=== PATIENT | male | born 1965 | race Caucasian/White ===

== ENCOUNTER 2019-10-07 16:44 | Observation (INO) ==
[2019-10-07] MEDS ORDERED: ASPIRIN CHEW 324 MG PO STA (17:36)
[2019-10-07] MEDS ORDERED: NITROGLYCERIN 2% OINTMENT 30GM TUBE EXT STA (17:36)
[2019-10-07 17:50] LABS: Basophils # (auto) 0.02 K/uL (0-0.2); Basophils % (auto) 0.2 %; Eosinophils # (auto) 0.14 K/uL (0-0.5); Eosinophils % (auto) 1.7 %; Hematocrit (blood only) 45.2 % (42-52); Immature Granulocytes # (auto) 0.01 K/uL (0.00-0.02); Immature Granulocytes % (auto) 0.1 %; Lymphocytes # (auto) 1.55 K/uL (1.2-3.4); Lymphocytes % (auto) 18.3 %; Mean Corpuscular Hemoglobin 29.3 pg (25-34); Mean Corpuscular Hgb Conc 35.4 g/dL (32-36); Mean Corpuscular Volume 82.6 fL (80-100); Mean Platelet Volume 10.8 fL (7.4-10.4); Monocytes # (auto) 0.67 K/uL (0.11-0.59); Monocytes % (auto) 7.9 %; Neutrophils # (auto) 6.07 K/uL (1.4-6.5); Neutrophils % (auto) 71.8 %; Platelet Count 234 K/uL (130-400); RDW Coefficient of Variation 12.5 % (11.5-14.5); RDW Standard Deviation 37.7 fL (36.4-46.3); Red Blood Count 5.47 M/uL (4.7-6.1); White Blood Count 8.46 K/uL (4.8-10.8)
--- NOTE | 2019-10-07 17:56 | XRay Report ---
XR chest 1V portable CLINICAL HISTORY: 54 years-old Male presenting with Chest Pain. TECHNIQUE: Portable upright AP view of the chest was obtained. COMPARISON: None. FINDINGS: Cardiomediastinal silhouette normal. Mildly low lung volumes. No focal opacity. No large effusion or pneumothorax. Osseous structures normal. Upper abdomen normal. IMPRESSION: 1. No acute cardiopulmonary disease. Electronically signed by: Jose Antonio Ruiz M.D. 10/07/2019 5:55 PM
[2019-10-07 17:57] LABS: iSTAT Creatinine 1.7 mg/dl (0.6-1.3); iSTAT Ionized Calcium 1.13 mmol/l (1.12-1.32); iSTAT Potassium 4.3 mEq/L (3.3-5.0)
[2019-10-07] MEDS ORDERED: SODIUM CHLORIDE 0.9% 1000ML 1,000 ML IV ONE (18:06)
[2019-10-07 18:13] LABS: Alanine Aminotransferase 21 U/L (12-78); Albumin Globulin Ratio 0.8 (0.9-2); Albumin Level 3.4 gm/dl (3.4-5.0); Alkaline Phosphatase 128 U/L (45-117); Aspartate Aminotransferase 14 U/L (15-37); BUN Creatinine Ratio 8.7 (10-20); Bilirubin,Total 0.4 mg/dl (0.2-1); Blood Urea Nitrogen 17 mg/dl (7-18); Calcium 8.8 mg/dl (8.5-10.1); Carbon Dioxide 22 mmol/L (21-32); Chloride 105 mmol/L (98-107); Creatine Kinase 62 U/L (39-308); Creatine Kinase MB 1.7 ng/ml (0.5-3.6); Est GFR (Non-African American) 38.9; Globulin 4.1 gm/dl (2.5-4.0); Glucose 375 mg/dl (70-99); Lipase 70 U/L (73-393); Potassium 4.2 mmol/L (3.5-5.1); Sodium 136 mmol/L (136-145); Total Protein 7.5 gm/dl (6.4-8.2); Troponin I < 0.015 ng/ml (0-0.045)
[2019-10-07] MEDS ORDERED: OPTIRAY 320 125ml IV PRN (18:13)
--- NOTE | 2019-10-07 18:26 | CT Scan Report ---
CT angio chest PE protocol CLINICAL HISTORY: 54 years-old Male presenting with atypical chest pain, shortness of breath, clinica l concern for pulmonary embolus. TECHNIQUE: Multidetector CT angiography of the chest was performed after administration of intravenou s contrast. 3-D volumetric and/or maximum intensity projection (MIP) images were subsequently reconst ructed for review. IV contrast: 116 mL of Optiray 320. One or more dose lowering techniques were used consistent with the principles of ALARA (as low as reasonably achievable), including automatic expos ure control, mA or kV adjustment to individual patient size, and/or use of iterative reconstruction. COMPARISON: Chest x-ray from earlier today. CT DOSE (mGy.cm): The estimated cumulative dose is 1457.20. FINDINGS: Credit Authorizer topogram: Unremarkable. Pulmonary vasculature: The study is adequate for assessment of the pulmonary vascular tree. No filling defect within the pul monary arteries to suggest embolus. Main pulmonary artery is not enlarged. No flattening of the inter ventricular septum. No intracardiac filling defect. No reflux of contrast into the hepatic veins. Remaining chest: Soft tissues: Normal thyroid and thoracic inlet. Gynecomastia. No axillary, supraclavicular, mediasti nal, or hilar lymphadenopathy. Normal aorta. Normal heart size. Coronary artery calcification. No per icardial or pleural effusion. Upper abdomen normal. Lungs and airways: No pneumothorax. Central airways patent. Pulmonary arteries are not significantly enlarged relative to adjacent bronchi. No interlobular septal thickening. Calcified granuloma noted i n the right upper lobe. No other focal nodule or infiltrate. Musculoskeletal: Degenerative changes of the spine. IMPRESSION: 1. No evidence of pulmonary embolus. No acute intrathoracic pathology. Electronically signed by: Jose Antonio Ruiz M.D. 10/07/2019 6:25 PM
--- NOTE | 2019-10-07 18:30 | CT Scan Report ---
CT abd pelvis IV con only CLINICAL HISTORY: Generalized abdominal pain COMPARISON STUDY: None. TECHNIQUE: The patient was scanned in a dynamic helical fashion during intravenous administration of 116 cc of Optiray 320. A dose lowering technique was utilized adhering to the principles of ALARA. CT DOSE: 1457.20 mGy.cm FINDINGS: Lower chest: There are coronary artery calcifications present. There is no focal pulmonary consolidat ion. There are no pleural effusions. Liver: The contrast-enhanced liver is normal in size, contour, and attenuation. There is no intrahepa tic biliary ductal dilatation. The hepatic veins and portal veins are patent. Gallbladder: Unremarkable. Spleen: Normal in size and attenuation. Pancreas: Unremarkable. Adrenal glands: Unremarkable. Kidneys: There is symmetric renal cortical enhancement. The kidneys are normal in size without hydron ephrosis. Bowel: There are no transition zones indicate bowel obstruction. There is no evidence of acute divert iculitis. The right colon is slightly redundant. The appendix is difficult to visualize with certaint y. There are no findings to indicate acute appendicitis. There is formed stool present within nondila parvez small bowel loops. There is debris filled stomach. There is moderate fecal retention. The rectum measures 6 cm. Peritoneum: There is no intraperitoneal free air or abdominal ascites. Vasculature: The abdominal aorta is normal in course and caliber. Adenopathy: None. Pelvic viscera: The bladder, and pelvic viscera are unremarkable. Skeletal structures: No destructive osseous lesions are seen. IMPRESSION: 1. No evidence of bowel obstruction. No evidence of free air 2. No acute inflammatory changes 3. Moderate fecal retention. Correlate clinically with symptoms of constipation. Electronically signed by: Eduin Savage M.D. 10/07/2019 6:29 PM
[2019-10-07] MEDS ORDERED: NovoLIN-R INSULIN PER UNIT CHARGE IV STA (18:45)
[2019-10-07 18:59] LABS: Beta-Hydroxybutyrate 1.13 mg/dl (0.2-2.81)
--- NOTE | 2019-10-07 20:05 | Emergency Department Note ---
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 The patient states that his pain radiates to his left arm. The patient notes that he had nausea and vomiting last night as well. The patient notes that he has also had epigastric abdominal pain for the past week. The patient states that he had nitroglycerin prior to arrival which helped his pain. Home Medications Home Medications Medication Instructions Recorded Confirmed Type Alvesco 1 puff INHALATION BID 10/07/19 10/07/19 History Humulin R Regular U-100 Insuln 1 sliding scale dose SUBCUT TID 10/07/19 10/07/19 History Lantus U-100 Insulin 26 unit SUBCUT DAILY 10/07/19 10/07/19 History amlodipine 10 mg PO DAILY 10/07/19 10/07/19 History aspirin [Aspir-81] 81 mg PO DAILY 10/07/19 10/07/19 History levalbuterol tartrate [Xopenex HFA] 2 inh INHALATION QID PRN 10/07/19 10/07/19 History metoprolol tartrate 25 mg PO DAILY 10/07/19 10/07/19 History mirtazapine 15 mg PO HS 10/07/19 10/07/19 History nitroglycerin [Nitrostat] 0.4 mg SUBLINGUAL UD PRN 10/07/19 10/07/19 History nortriptyline 50 mg PO BID 10/07/19 10/07/19 History nortriptyline 75 mg PO HS 10/07/19 10/07/19 History pantoprazole 40 mg PO DAILY 10/07/19 10/07/19 History ibuprofen 600 mg PO Q8H PRN #20 tab 10/08/19 Rx lidocaine 1 appln TOP BID PRN #30 gm 10/08/19 Rx lisinopril 2.5 mg PO DAILY #30 tab 10/08/19 Rx Allergies Allergy/AdvReac Type Severity Reaction Status Date / Time No Known Allergies Allergy Unverified 10/07/19 19:16 Past Med/Surg History Social History Preferred Language: Sinhala Communication Ability: Effective Dynamite Shooter Required: No Beliefs That Will Affect Care: None Current Living Situation: Other Feels Safe at Home: Yes Smoking Status: Unknown if ever smoked Hx Alcohol Use: No Hx Substance Use: No Review of Systems See HPI for pertinent positives & negatives. and A total of 10 systems reviewed and were otherwise negative Physical Exam Vital Signs Vital Signs - 24 hr 10/07/19 16:52 10/07/19 17:17 10/07/19 17:30 Temperature 36.8 C Temperature Source Oral Sepsis Recent Fever Within 48 Hours No Sepsis New/Unexplained Change in Mental Status No Sepsis Action Taken by Nursing No Action Required Pulse Rate 124 H Pulse Rate [Left] 118 H Pulse Rate from SpO2 Sensor Respiratory Rate 20 20 Respiratory Effort / Characteristics Non-Labored Spontaneous Non-Labored Spontaneous Respiratory Depth Blood Pressure 154/90 H Blood Pressure [Right Arm] 161/109 H Blood Pressure Mean 111 Blood Pressure Mean [Right Arm] 126 Blood Pressure Position Lying Blood Pressure Position [Right Arm] Lying Pulse Oximetry 96 96 97 Oxygen Delivery Method Room Air Room Air Room Air 10/07/19 18:41 10/07/19 19:00 10/07/19 19:01 Temperature Temperature Source Sepsis Recent Fever Within 48 Hours Sepsis New/Unexplained Change in Mental Status Sepsis Action Taken by Nursing Pulse Rate 110 H 109 H Pulse Rate [Left] 87 Pulse Rate from SpO2 Sensor 110 H 109 H Respiratory Rate 18 16 15 Respiratory Effort / Characteristics Non-Labored Spontaneous Respiratory Depth Normal Blood Pressure 160/93 H Blood Pressure [Right Arm] 154/100 H Blood Pressure Mean 115 Blood Pressure Mean [Right Arm] 118 Blood Pressure Position Blood Pressure Position [Right Arm] Lying Pulse Oximetry 95 96 95 Oxygen Delivery Method Room Air 10/07/19 19:30 10/07/19 19:31 Temperature Temperature Source Sepsis Recent Fever Within 48 Hours Sepsis New/Unexplained Change in Mental Status Sepsis Action Taken by Nursing Pulse Rate 112 H 112 H Pulse Rate [Left] Pulse Rate from SpO2 Sensor 112 H 112 H Respiratory Rate 15 15 Respiratory Effort / Characteristics Respiratory Depth Blood Pressure 156/99 H Blood Pressure [Right Arm] Blood Pressure Mean 118 Blood Pressure Mean [Right Arm] Blood Pressure Position Blood Pressure Position [Right Arm] Pulse Oximetry 95 95 Oxygen Delivery Method GENERAL: Awake, alert, well-appearing, in no acute distress HENT: Normocephalic, atraumatic. Oropharynx unremarkable. EYES: Normal conjunctiva. Sclera non-icteric. NECK: Supple. No nuchal rigidity. FROM. No JVD. RESPIRATORY: Clear to auscultation. CARDIAC: Regular rate, normal rhythm. Extremities warm and well perfused. Pulses equal. ABDOMEN: Soft, non-distended. No tenderness to palpation. No rebound or guarding. No masses. RECTAL: Deferred. MUSCULOSKELETAL: Chest examination reveals no tenderness. The back is symmetrical on inspection without obvious abnormality. There is no CVA tenderness to palpation. No joint edema. 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 No edema. No discoloration. NEURO: Normal sensorium. No sensory or motor deficits noted. SKIN: No rash or jaundice noted. Course 173: Past medical records reviewed. The patient was evaluated in room C08. A complete history and physical exam was performed. 191: I discussed the case with Dr. Platt [facility] Hospitalist. He will evaluate the patient for further management. Consultations Consultation #1: I discussed the case with Dr. Platt [facility] Hospitalist. He will evaluate the patient for further management. Time: 19:19 Administered Medications Discontinued Medications Acetaminophen (Tylenol) 650 mg PO Q4H PRN PRN Reason: mild pain or fever Stop: 11/06/19 20:53 Last Admin: 10/08/19 08:45 Dose: 650 mg Documented by: [id number] Cosigned by: [id number] Amlodipine Besylate (Norvasc) 10 mg PO DAILY XENA Stop: 11/07/19 08:59 Last Admin: 10/08/19 08:39 Dose: 10 mg Documented by: [id number] Cosigned by: [id number] Aspirin (Aspirin) 324 mg PO NOW STA Stop: 10/07/19 17:37 Last Admin: 10/07/19 17:52 Dose: Not Given Documented by: [id number] Aspirin (Ecotrin Ectab) 81 mg PO DAILY XENA Stop: 11/07/19 08:59 Last Admin: 10/08/19 08:39 Dose: 81 mg Documented by: [id number] Cosigned by: [id number] Heparin Sodium (Porcine) (Heparin Sodium (Porcine)) 5,000 units SQ Q8 XENA Stop: 11/06/19 21:59 Last Admin: 10/08/19 16:26 Dose: 5,000 units Documented by: [id number] Cosigned by: [id number] Admin: 10/08/19 05:42 Dose: 5,000 units Documented by: [id number] Cosigned by: [id number] Admin: 10/07/19 23:46 Dose: 5,000 units Documented by: [id number] Cosigned by: [id number] Sodium Chloride (Nss 1000ml) 1,000 mls @ 999 mls/hr IV .Q1H1M ONE Stop: 10/07/19 19:06 Last Infusion: 10/07/19 19:38 Dose: 0 mls/hr Documented by: [id number] Admin: 10/07/19 18:37 Dose: 999 mls/hr Documented by: [id number] Sodium Chloride (Nss 1000ml) 1,000 mls @ 125 mls/hr IV .Q8H XENA Stop: 11/06/19 23:44 Last Admin: 10/08/19 17:03 Dose: Not Given Documented by: [id number] Infusion: 10/08/19 14:47 Dose: 0 mls/hr Documented by: [id number] Admin: 10/08/19 08:29 Dose: 125 mls/hr Documented by: [id number] Cosigned by: [id number] Infusion: 10/08/19 08:29 Dose: 125 mls/hr Documented by: [id number] Cosigned by: [id number] Admin: 10/08/19 00:37 Dose: 125 mls/hr Documented by: [id number] Lactated Ringer's (Lr) 1,000 mls @ 999 mls/hr IV .Q1H1M ONE Stop: 10/08/19 14:28 Last Infusion: 10/08/19 16:12 Dose: 0 mls/hr Documented by: [id number] Cosigned by: [id number] Admin: 10/08/19 13:45 Dose: 999 mls/hr Documented by: [id number] Insulin Aspart (Novolog Flexpen) 0 units SC Q6 XENA Stop: 11/07/19 00:00 Last Admin: 10/08/19 17:03 Dose: 8 units Documented by: [id number] Cosigned by: [id number] Admin: 10/08/19 12:47 Dose: 6 units Documented by: [id number] Cosigned by: [id number] Admin: 10/08/19 05:42 Dose: 5 units Documented by: [id number] Cosigned by: [id number] Admin: 10/08/19 00:44 Dose: 5 units Documented by: [id number] Cosigned by: [id number] Insulin Glargine (Lantus Solostar Pen) 26 units SQ DAILY XENA Stop: 11/07/19 08:59 Last Admin: 10/08/19 08:40 Dose: 13 units Documented by: [id number] Cosigned by: [id number] Insulin Human Regular (Novolin R U-100 Per Unit) 10 units IV NOW STA Stop: 10/07/19 18:46 Last Admin: 10/07/19 18:49 Dose: 10 units Documented by: [id number] Cosigned by: [id number] Ioversol (Optiray 320 125ml) 116 ml IV ONCE PRN PRN Reason: Interaction Checking Stop: 10/11/19 18:12 Last Admin: 10/07/19 18:14 Dose: 116 ml Documented by: [id number] Magnesium Hydroxide (Milk Of Magnesia) 30 ml PO Q6H PRN PRN Reason: Constipation Stop: 11/06/19 20:53 Last Admin: 10/08/19 08:43 Dose: 30 ml Documented by: [id number] Cosigned by: [id number] Metoprolol Tartrate (Lopressor) 25 mg PO DAILY XENA Stop: 11/07/19 08:59 Last Admin: 10/08/19 08:40 Dose: 25 mg Documented by: [id number] Cosigned by: [id number] Mirtazapine (Remeron) 15 mg PO HS XENA Stop: 11/06/19 20:59 Last Admin: 10/08/19 19:27 Dose: 15 mg Documented by: [id number] Admin: 10/07/19 23:46 Dose: 15 mg Documented by: [id number] Miscellaneous (Order Awaiting Action) 1 ea N/A QS XENA Stop: 11/07/19 00:00 Last Admin: 10/08/19 17:09 Dose: Not Given Documented by: [id number] Admin: 10/08/19 09:24 Dose: Not Given Documented by: [id number] Admin: 10/08/19 00:31 Dose: Not Given Documented by: [id number] Morphine Sulfate (Morphine Sulfate) 4 mg IV Q4H PRN PRN Reason: Severe Pain (7,8,9, 10) Stop: 10/21/19 20:53 Last Admin: 10/07/19 22:16 Dose: 4 mg Documented by: [id number] Nitroglycerin (Nitro-Bid 2%) 1 inch EXT NOW STA Stop: 10/07/19 17:37 Last Admin: 10/07/19 17:51 Dose: 1 inch Documented by: [id number] Nitroglycerin (Nitro-Bid 2%) 0.5 inch EXT Q6 XENA Stop: 11/07/19 00:00 Last Admin: 10/08/19 17:10 Dose: Not Given Documented by: [id number] Admin: 10/08/19 12:46 Dose: Not Given Documented by: [id number] Admin: 10/08/19 05:38 Dose: 0.5 inch Documented by: [id number] Admin: 10/08/19 00:37 Dose: 0.5 inch Documented by: [id number] Nortriptyline HCl (Pamelor) 75 mg PO HS XENA Stop: 11/06/19 20:59 Last Admin: 10/08/19 19:26 Dose: 75 mg Documented by: [id number] Admin: 10/07/19 23:48 Dose: 75 mg Documented by: [id number] Nortriptyline HCl (Pamelor) 50 mg PO BID XENA Stop: 11/06/19 20:59 Last Admin: 10/08/19 19:27 Dose: 50 mg Documented by: [id number] Admin: 10/08/19 08:42 Dose: 50 mg Documented by: [id number] Cosigned by: [id number] Admin: 10/07/19 23:47 Dose: 50 mg Documented by: [id number] Pantoprazole Sodium (Protonix) 40 mg PO DAILY XENA Stop: 11/07/19 08:59 Last Admin: 10/08/19 08:40 Dose: 40 mg Documented by: [id number] Cosigned by: [id number] Senna/Docusate Sodium (Senokot S) 2 tab PO HS XENA Stop: 11/06/19 20:59 Last Admin: 10/08/19 19:27 Dose: Not Given Documented by: [id number] Admin: 10/07/19 23:55 Dose: 2 tab Documented by: [id number] Medical Decision Making Differential Diagnosis Differential diagnosis: Etiologies such as shingles, musculoskeletal pain, pericarditis, myocarditis, cardiac ischemia, pericardial tamponade, pneumonia, pneumothorax, pleural effusion, hemothorax, pleurisy, aortic pathology, pulmonary embolism, intra- abdominal process, as well as others were considered. Medical Records Attestation: I reviewed the patient's medical records. Home Medications Current Medication List: was personally reviewed by me Laboratory Data Attestation: I reviewed the patient's lab results. Result diagrams: 10/08/19 09:12 10/08/19 16:03 Lab Results 10/07/19 10/07/19 10/07/19 Range/Units 17:25 17:25 17:45 WBC 8.46 (4.8-10.8) K/uL RBC 5.47 (4.7-6.1) M/uL Hgb 16.0 (14.0-18.0) g/dL POC Hgb 16.0 (14.0-18.0) g/dl Hct 45.2 (42-52) % POC Hct 47 (42-52) % MCV 82.6 (80-100) fL MCH 29.3 (25-34) pg MCHC 35.4 (32-36) g/dL RDW Std Deviation 37.7 (36.4-46.3) fL RDW Coeff of Kimberly 12.5 (11.5-14.5) % Plt Count 234 (130-400) K/uL MPV 10.8 H (7.4-10.4) fL Immature Gran % (Auto) 0.1 % Neut % (Auto) 71.8 % Lymph % (Auto) 18.3 % [place] % (Auto) 7.9 % Eos % (Auto) 1.7 % Baso % (Auto) 0.2 % Immature Gran # (Auto) 0.01 (0.00-0.02) K/uL Neut # (Auto) 6.07 (1.4-6.5) K/uL Lymph # (Auto) 1.55 (1.2-3.4) K/uL [place] # (Auto) 0.67 H (0.11-0.59) K/uL Eos # (Auto) 0.14 (0-0.5) K/uL Baso # (Auto) 0.02 (0-0.2) K/uL POC Sodium 138 (135-144) mEq/L Sodium 136 (136-145) mmol/L POC Potassium 4.3 (3.3-5.0) mEq/L Potassium 4.2 (3.5-5.1) mmol/L POC Chloride 103 (101-112) mEq/L Chloride 105 (98-107) mmol/L Carbon Dioxide 22 (21-32) mmol/L POC Total CO2 22 L (24-31) mEq/l Anion Gap 8.0 (3-11) POC Anion Gap 18.0 (16-25) mmol/L POC BUN 18 (7-18) mg/dl BUN 17 (7-18) mg/dl Creatinine 1.91 H (0.6-1.4) mg/dl POC Creatinine 1.7 H (0.6-1.3) mg/dl Est Cr Clr Drug Dosing Not Reportable Est GFR ( Amer) 45.0 Est GFR (Non-Af Amer) 38.9 BUN/Creatinine Ratio 8.7 L (10-20) Glucose 375 H* (70-99) mg/dl POC Glucose (70-99) POC Glucose (other) 385 H* (70-99) mg/dl Calcium 8.8 (8.5-10.1) mg/dl POC Ioniz Calcium Colleen 1.13 (1.12-1.32) mmol/l Total Bilirubin 0.4 (0.2-1) mg/dl AST 14 L (15-37) U/L ALT 21 (12-78) U/L Alkaline Phosphatase 128 H (45-117) U/L Total Creatine Kinase 62 (39-308) U/L CK-MB (CK-2) 1.7 (0.5-3.6) ng/ml CK/CKMB % Calc 2.7 (0-3.0) Troponin I < 0.015 (0-0.045) ng/ml Total Protein 7.5 (6.4-8.2) gm/dl Albumin 3.4 (3.4-5.0) gm/dl Globulin 4.1 H (2.5-4.0) gm/dl Albumin/Globulin Ratio 0.8 L (0.9-2) Lipase 70 L (73-393) U/L Beta-Hydroxybutyric Acd 1.13 (0.2-2.81) mg/dl 10/07/19 Range/Units 19:47 WBC (4.8-10.8) K/uL RBC (4.7-6.1) M/uL Hgb (14.0-18.0) g/dL POC Hgb (14.0-18.0) g/dl Hct (42-52) % POC Hct (42-52) % MCV (80-100) fL MCH (25-34) pg MCHC (32-36) g/dL RDW Std Deviation (36.4-46.3) fL RDW Coeff of Kimberly (11.5-14.5) % Plt Count (130-400) K/uL MPV (7.4-10.4) fL Immature Gran % (Auto) % Neut % (Auto) % Lymph % (Auto) % [place] % (Auto) % Eos % (Auto) % Baso % (Auto) % Immature Gran # (Auto) (0.00-0.02) K/uL Neut # (Auto) (1.4-6.5) K/uL Lymph # (Auto) (1.2-3.4) K/uL [place] # (Auto) (0.11-0.59) K/uL Eos # (Auto) (0-0.5) K/uL Baso # (Auto) (0-0.2) K/uL POC Sodium (135-144) mEq/L Sodium (136-145) mmol/L POC Potassium (3.3-5.0) mEq/L Potassium (3.5-5.1) mmol/L POC Chloride (101-112) mEq/L Chloride (98-107) mmol/L Carbon Dioxide (21-32) mmol/L POC Total CO2 (24-31) mEq/l Anion Gap (3-11) POC Anion Gap (16-25) mmol/L POC BUN (7-18) mg/dl BUN (7-18) mg/dl Creatinine (0.6-1.4) mg/dl POC Creatinine (0.6-1.3) mg/dl Est Cr Clr Drug Dosing Est GFR ( Amer) Est GFR (Non-Af Amer) BUN/Creatinine Ratio (10-20) Glucose (70-99) mg/dl POC Glucose 274 H (70-99) POC Glucose (other) (70-99) mg/dl Calcium (8.5-10.1) mg/dl POC Ioniz Calcium Colleen (1.12-1.32) mmol/l Total Bilirubin (0.2-1) mg/dl AST (15-37) U/L ALT (12-78) U/L Alkaline Phosphatase (45-117) U/L Total Creatine Kinase (39-308) U/L CK-MB (CK-2) (0.5-3.6) ng/ml CK/CKMB % Calc (0-3.0) Troponin I (0-0.045) ng/ml Total Protein (6.4-8.2) gm/dl Albumin (3.4-5.0) gm/dl Globulin (2.5-4.0) gm/dl Albumin/Globulin Ratio (0.9-2) Lipase (73-393) U/L Beta-Hydroxybutyric Acd (0.2-2.81) mg/dl Imaging Data Radiologist's Impression: Radiology results as stated below per my review and the radiologist's interpretation: XR chest 1V portable CLINICAL HISTORY: 54 years-old Male presenting with Chest Pain. TECHNIQUE: Portable upright AP view of the chest was obtained. COMPARISON: None. FINDINGS: Cardiomediastinal silhouette normal. Mildly low lung volumes. No focal opacity. No large effusion or pneumothorax. Osseous structures normal. Upper abdomen normal. IMPRESSION: 1. No acute cardiopulmonary disease. Electronically signed by: Jose Antonio Ruiz M.D. 10/07/2019 5:[address] angio chest PE protocol CLINICAL HISTORY: 54 years-old Male presenting with atypical chest pain, shortness of breath, clinical concern for pulmonary embolus. TECHNIQUE: Multidetector CT angiography of the chest was performed after admi nistration of intravenous contrast. 3-D volumetric and/or maximum intensity projection (MIP) images were subsequently reconstructed for review. IV contrast: 116 mL of Optiray 320. One or more dose lowering techniques were used consistent with the principles of ALARA (as low as reasonably achievable), including automatic exposure control, mA or kV adjustment to individual patient size, and/or use of iterative reconstruction. COMPARISON: Chest x-ray from earlier today. CT DOSE (mGy.cm): The estimated cumulative dose is 1457.20. FINDINGS: Marketing Assistant topogram: Unremarkable. Pulmonary vasculature: The study is adequate for assessment of the pulmonary vascular tree. No filling defect within the pulmonary arteries to suggest embolus. Main pulmonary artery is not enlarged. No flattening of the interventricular septum. No intracardiac filling defect. No reflux of contrast into the hepatic veins. Remaining chest: Soft tissues: Normal thyroid and thoracic inlet. Gynecomastia. No axillary, supr aclavicular, mediastinal, or hilar lymphadenopathy. Normal aorta. Normal heart size. Coronary artery calcification. No pericardial or pleural effusion. Upper abdomen normal. Lungs and airways: No pneumothorax. Central airways patent. Pulmonary arteries are not significantly enlarged relative to adjacent bronchi. No interlobular septal thickening. Calcified granuloma noted in the right upper lobe. No other focal nodule or infiltrate. Musculoskeletal: Degenerative changes of the spine. IMPRESSION: 1. No evidence of pulmonary embolus. No acute intrathoracic pathology. Electronically signed by: Jose Antonio Ruiz M.D. 10/07/2019 6:[address] abd pelvis IV con only CLINICAL HISTORY: Generalized abdominal pain COMPARISON STUDY: None. TECHNIQUE: The patient was scanned in a dynamic helical fashion during intravenous administration of 116 cc of Optiray 320. A dose lowering technique was utilized adhering to the principles of ALARA. CT DOSE: 1457.20 mGy.cm FINDINGS: Lower chest: There are coronary artery calcifications present. There is no focal pulmonary consolidation. There are no pleural effusions. Liver: The contrast-enhanced liver is normal in size, contour, and attenuation. There is no intrahepatic biliary ductal dilatation. The hepatic veins and portal veins are patent. Gallbladder: Unremarkable. Spleen: Normal in size and attenuation. Pancreas: Unremarkable. Adrenal glands: Unremarkable. Kidneys: There is symmetric renal cortical enhancement. The kidneys are normal in size without hydronephrosis. Bowel: There are no transition zones indicate bowel obstruction. There is no evidence of acute diverticulitis. The right colon is slightly redundant. The appendix is difficult to visualize with certainty. There are no findings to indicate acute appendicitis. There is formed stool present within nondilated small bowel loops. There is debris filled stomach. There is moderate fecal retention. The rectum measures 6 cm. Peritoneum: There is no intraperitoneal free air or abdominal ascites. Vasculature: The abdominal aorta is normal in course and caliber. Adenopathy: None. Pelvic viscera: The bladder, and pelvic viscera are unremarkable. Skeletal structures: No destructive osseous lesions are seen. IMPRESSION: 1. No evidence of bowel obstruction. No evidence of free air 2. No acute inflammatory changes 3. Moderate fecal retention. Correlate clinically with symptoms of constipation. Electronically signed by: Eduin Savage M.D. 10/07/2019 6:29 PM ECG Data Attestation: I personally reviewed and interpreted this ECG as follows: Indication: + chest pain Rate (beats per minute): 125 Rhythm: + sinus tachycardia ECG ST segments: no ST depression and no ST elevation ECG Findings: + Other (old inferior infarct, QTC 424) Blood Pressure Blood Pressure Findings: Elevated blood pressure Blood Pressure Disposition: further management by hospitalist [facility] Narrative This is a prisoner the presents to the emergency department complaining of chest pain. Patient's pain was relieved by nitro. Nitropaste was placed on the patient in the emergency department. His blood sugar was found to be grossly elevated and he was given insulin here in the emergency department. Based on his risk factors I did discuss the case with the hospitalist service who agreed to admit the patient. Patient was in agreement with the treatment plan. Impression & Plan Chest pain, Type II diabetes mellitus, CKD (chronic kidney disease) stage 3, GFR 30-59 ml/min Discharge Plan Visit Data *Final* Discharge Date/Time: 10/07/19 20:24 Chief Complaint: Chest Pain Stated Complaint: CHEST PAIN ED Provider: Justin Guevara Discharge Problem: Chest pain, Type II diabetes mellitus, CKD (chronic kidney disease) stage 3, GFR 30-59 ml/min Patient Disposition: Admitted As Inpatient Discharge Instructions Interventions: ED Discharge Assessment Last Done: 10/07/19 20:24 The scribe's documentation has been prepared under my direction and personally reviewed by me in its entirety. I confirm that the note above accurately refl ects all work, treatment, procedures, and medical decision making performed by me.
[2019-10-07] MEDS ORDERED: DEXTROSE 50% 50 ML SYRINGE IV PRN (20:54)
[2019-10-07] MEDS ORDERED: CARBOHYDRATES FOR HYPOGLYCEMIA PO PRN (20:54)
[2019-10-07] MEDS ORDERED: GLUCOSE 40% GEL 15 GM TUBE PO PRN (20:54)
[2019-10-07] MEDS ORDERED: MoRPHine SULFATE 2 MG/ML CARP IV PRN (20:54)
[2019-10-07] MEDS ORDERED: MoRPHine SULFATE 4 MG/ML 1 ML CARP\\VIAL IV PRN (20:54)
[2019-10-07] MEDS ORDERED: METOPROLOL TARTRATE 1 MG/ML VIAL IV PRN (20:54)
[2019-10-07] MEDS ORDERED: HydrALAZINE HCL 20 MG/ML VIAL IV PRN (20:54)
[2019-10-07] MEDS ORDERED: MAGNESIUM HYDROXIDE SUSP 30 ML UDC PO PRN (20:54)
[2019-10-07] MEDS ORDERED: GLUCAGON FOR INJ 1 MG VIAL SQ PRN (20:54)
[2019-10-07] MEDS ORDERED: LEVALBUTEROL HCL 1.25 MG/3 ML NEB NEB PRN (20:54)
[2019-10-07] MEDS ORDERED: ACETAMINOPHEN 325 MG TAB PO PRN (20:54)
[2019-10-07] MEDS ORDERED: GLUCOSE 10 TABS/TUBE PO PRN (20:54)
[2019-10-07] MEDS ORDERED: ONDANSETRON INJ 2 MG/ML 2 ML VIAL IV PRN (20:54)
[2019-10-07] MEDS ORDERED: INSULIN HUMAN REGULAR SC SCH (21:00)
--- NOTE | 2019-10-07 23:44 | History & Physical Report ---
Date of Service October 07, 2019 Assessment & Plan (1) Chest pain: OBs PCU serial trops Npo after midnight in preparation for possibility of cardiac cath Cardiology consult NTG paste Morphine for pain control Aspirin given in ED Echo (2) CAD (coronary artery disease): (3) Stented coronary artery: (4) HTN (hypertension): Continue amlodipine and metoprolol (5) Depression: Continue mirtazapine and nortriptylline (6) Type II diabetes mellitus: Continue Lantus Sliding scale coverage HGBA1C (7) CKD (chronic kidney disease) stage 3, GFR 30-59 ml/min: I give IVF overnight in that he had dye load from CTA chest. (8) GERD (gastroesophageal reflux disease): Continue pantroprazole. (9) Below-knee amputation of left lower extremity: History of Present Illness 54 y/o male presented to the ED with substernal chest pain radiating to the L arm of 10 hours duration. He had NTG prior to arrival with some relief of the pain. He reports having epigastric pain over the previous week and then last night had N/V. He has a history of CAD with stent placement. No F/C, cough, SOB, diaphoresis, or syncope. Primary Care Provider: DANIEL Hall Allergies Allergy/AdvReac Type Severity Reaction Status Date / Time No Known Allergies Allergy Unverified 10/07/19 19:16 Home Medications Home Medications Medication Instructions Recorded Confirmed Type amlodipine 10 mg PO DAILY 10/07/19 10/07/19 History aspirin [Aspir-81] 81 mg PO DAILY 10/07/19 10/07/19 History ciclesonide [Alvesco] 1 puff INHALATION BID 10/07/19 10/07/19 History insulin glargine [Lantus U-100 26 unit SUBCUT DAILY 10/07/19 10/07/19 History Insulin] insulin regular human [Humulin R 1 sliding scale dose SUBCUT TID 10/07/19 10/07/19 History Regular U-100 Insuln] levalbuterol tartrate [Xopenex HFA] 2 inh INHALATION QID PRN 10/07/19 10/07/19 History metoprolol tartrate 25 mg PO DAILY 10/07/19 10/07/19 History mirtazapine 15 mg PO HS 10/07/19 10/07/19 History nitroglycerin [Nitrostat] 0.4 mg SUBLINGUAL UD PRN 10/07/19 10/07/19 History nortriptyline 50 mg PO BID 10/07/19 10/07/19 History nortriptyline 75 mg PO HS 10/07/19 10/07/19 History pantoprazole 40 mg PO DAILY 10/07/19 10/07/19 History Past Med/Surg History Medical History Below-knee amputation of left lower extremity Bipolar 1 disorder CAD (coronary artery disease) Depression Diabetes GERD (gastroesophageal reflux disease) HTN (hypertension) Kidney failure Surgical History Stented coronary artery Social History Preferred Language: Moroccan Communication Ability: Effective 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 - no dysuria, no hematuria Musculoskeletal- no arthralgias, no myalgias Derm- no rashes, no new skin lesions, no changing skin lesions Hematologic- no unusual bruising, no unusual bleeding Lymphatics- no adenopathy Endocrine- no polyuria or polydipsia; no heat or cold intolerance Neuro- no headaches, no focal neurologic symptoms Psych- no anxiety. Physical Exam Physical Exam: General- adult male, NAD Head- atraumatic Eyes- PERRL, EOMI, anicteric ENT- oropharynx clear Neck- supple, no JVD, no adenopathy, no thyromegaly; carotids +2/2, no bruits appreciated Lungs- CTA b/l no R/R/W Heart- regular rhythm; no murmur, no gallop, no rub appreciated Abdomen- normal bowel sounds, soft, nontender. Extremities- no pretibial edema, no calf tenderness on right. Left BKA Neuro- alert, oriented x 3; PERRL, EOMI; CN's II-XII grossly intact, non-focal. Skin- warm & dry Results & Data Vital Signs (Past 12 Hours) Vital Signs Temp Pulse Pulse Resp BP BP Pulse Ox 10/07/19 20:30 36.8 C 103 H 17 145/84 H 96 10/07/19 19:31 112 H 15 95 10/07/19 19:30 112 H 15 156/99 H 95 10/07/19 19:01 109 H 15 95 10/07/19 19:00 110 H 16 160/93 H 96 10/07/19 18:41 87 18 154/100 H 95 10/07/19 17:30 118 H 20 161/109 H 97 10/07/19 17:17 96 10/07/19 16:52 36.8 C 124 H 20 154/90 H 96 Laboratory Results Laboratory Results WBC 8.46 K/uL (4.8-10.8) 10/07/19 17:25 RBC 5.47 M/uL (4.7-6.1) 10/07/19 17:25 Hgb 16.0 g/dL (14.0-18.0) 10/07/19 17:25 POC Hgb 16.0 g/dl (14.0-18.0) 10/07/19 17:45 Hct 45.2 % (42-52) 10/07/19 17:25 POC Hct 47 % (42-52) 10/07/19 17:45 MCV 82.6 fL (80-100) 10/07/19 17:25 MCH 29.3 pg (25-34) 10/07/19 17:25 MCHC 35.4 g/dL (32-36) 10/07/19 17:25 RDW Std Deviation 37.7 fL (36.4-46.3) 10/07/19 17:25 RDW Coeff of Kimberly 12.5 % (11.5-14.5) 10/07/19 17:25 Plt Count 234 K/uL (130-400) 10/07/19 17:25 MPV 10.8 fL (7.4-10.4) H 10/07/19 17:25 Immature Gran % (Auto) 0.1 % 10/07/19 17:25 Neut % (Auto) 71.8 % 10/07/19 17:25 Lymph % (Auto) 18.3 % 10/07/19 17:25 [place] % (Auto) 7.9 % 10/07/19 17:25 Eos % (Auto) 1.7 % 10/07/19 17:25 Baso % (Auto) 0.2 % 10/07/19 17:25 Immature Gran # (Auto) 0.01 K/uL (0.00-0.02) 10/07/19 17:25 Neut # (Auto) 6.07 K/uL (1.4-6.5) 10/07/19 17:25 Lymph # (Auto) 1.55 K/uL (1.2-3.4) 10/07/19 17:25 [place] # (Auto) 0.67 K/uL (0.11-0.59) H 10/07/19 17:25 Eos # (Auto) 0.14 K/uL (0-0.5) 10/07/19 17:25 Baso # (Auto) 0.02 K/uL (0-0.2) 10/07/19 17:25 POC Sodium 138 mEq/L (135-144) 10/07/19 17:45 Sodium 136 mmol/L (136-145) 10/07/19 17:25 POC Potassium 4.3 mEq/L (3.3-5.0) 10/07/19 17:45 Potassium 4.2 mmol/L (3.5-5.1) 10/07/19 17:25 POC Chloride 103 mEq/L (101-112) 10/07/19 17:45 Chloride 105 mmol/L (98-107) 10/07/19 17:25 Carbon Dioxide 22 mmol/L (21-32) 10/07/19 17:25 POC Total CO2 22 mEq/l (24-31) L 10/07/19 17:45 Anion Gap 8.0 (3-11) 10/07/19 17:25 POC Anion Gap 18.0 mmol/L (16-25) 10/07/19 17:45 POC BUN 18 mg/dl (7-18) 10/07/19 17:45 BUN 17 mg/dl (7-18) 10/07/19 17:25 Creatinine 1.91 mg/dl (0.6-1.4) H 10/07/19 17:25 POC Creatinine 1.7 mg/dl (0.6-1.3) H 10/07/19 17:45 Est Cr Clr Drug Dosing Not Reportable 10/07/19 17:25 Est GFR ( Amer) 45.0 10/07/19 17:25 Est GFR (Non-Af Amer) 38.9 10/07/19 17:25 BUN/Creatinine Ratio 8.7 (10-20) L 10/07/19 17:25 Glucose 375 mg/dl (70-99) H* 10/07/19 17:25 POC Glucose 286 (70-99) H 10/07/19 22:03 POC Glucose (other) 385 mg/dl (70-99) H* 10/07/19 17:45 Calcium 8.8 mg/dl (8.5-10.1) 10/07/19 17:25 POC Ioniz Calcium Colleen 1.13 mmol/l (1.12-1.32) 10/07/19 17:45 Total Bilirubin 0.4 mg/dl (0.2-1) 10/07/19 17:25 AST 14 U/L (15-37) L 10/07/19 17:25 ALT 21 U/L (12-78) 10/07/19 17:25 Alkaline Phosphatase 128 U/L (45-117) H 10/07/19 17:25 Total Creatine Kinase 62 U/L (39-308) 10/07/19 17:25 CK-MB (CK-2) 1.7 ng/ml (0.5-3.6) 10/07/19 17:25 CK/CKMB % Calc 2.7 (0-3.0) 10/07/19 17:25 Troponin I < 0.015 ng/ml (0-0.045) 10/07/19 17:25 Total Protein 7.5 gm/dl (6.4-8.2) 10/07/19 17:25 Albumin 3.4 gm/dl (3.4-5.0) 10/07/19 17:25 Globulin 4.1 gm/dl (2.5-4.0) H 10/07/19 17:25 Albumin/Globulin Ratio 0.8 (0.9-2) L 10/07/19 17:25 Lipase 70 U/L (73-393) L 10/07/19 17:25 Beta-Hydroxybutyric Acd 1.13 mg/dl (0.2-2.81) 10/07/19 17:25 Nasal Screen MRSA (PCR) Negative (Negative) 10/07/19 21:35 Diagnostic Findings [place], [place] [phone] CT Scan Report Patient: ALLA HOUSTON [id number] Date: 10/07/19 MR#: [id number] Acct ID:[id number]: SCI MELISSA Date: 1965ty Zip: [id number] Age: 54Location: ED Sex: M Room/Bed: Att Phy:Diagnosis: CHEST PAIN Blanche Phy: SCI BennerService Date: 10/07/19 Fam Phy:Interpreting Phy: Jose Antonio Ruiz MD Admit Phy: Ordering Phy: Justin Guevara MD cc: ~ CT angio chest PE protocol CLINICAL HISTORY: 54 years-old Male presenting with atypical chest pain, shortness of breath, clinical concern for pulmonary embolus. TECHNIQUE: Multidetector CT angiography of the chest was performed after administration of intravenous contrast. 3-D volumetric and/or maximum intensity projection (MIP) images were subsequently reconstructed for review. IV contrast: 116 mL of Optiray 320. One or more dose lowering techniques were used consistent with the principles of ALARA (as low as reasonably achievable), including automatic exposure control, mA or kV adjustment to individual patient size, and/or use of iterative reconstruction. COMPARISON: Chest x-ray from earlier today. CT DOSE (mGy.cm): The estimated cumulative dose is 1457.20. FINDINGS: Preventive Medicine Specialist topogram: Unremarkable. Pulmonary vasculature: The study is adequate for assessment of the pulmonary vascular tree. No filling defect within the pulmonary arteries to suggest embolus. Main pulmonary artery is not enlarged. No flattening of the interventricular septum. No intracardiac filling defect. No reflux of contrast into the hepatic veins. Remaining chest: Soft tissues: Normal thyroid and thoracic inlet. Gynecomastia. No axillary, supraclavicular, mediastinal, or hilar lymphadenopathy. Normal aorta. Normal heart size. Coronary artery calcification. No pericardial or pleural effusion. Upper abdomen normal. Lungs and airways: No pneumothorax. Central airways patent. Pulmonary arteries are not significantly enlarged relative to adjacent bronchi. No interlobular septal thickening. Calcified granuloma noted in the right upper lobe. No other focal nodule or infiltrate. Musculoskeletal: Degenerative changes of the spine. IMPRESSION: 1. No evidence of pulmonary embolus. No acute intrathoracic pathology. Electronically signed by: Jose Antonio Ruiz M.D. 10/07/2019 6:25 PM Dictated: 10/07/19 1818 Transcribed: 10/07/19 181 Code Status & VTE Plan VTE Prophylaxis Plan VTE Prophylaxis will be ordered: Yes PG Care Time/CCT Total # of Minutes Spent Total Time Spent: 70 Total Time Spent with Patient: Total time spent is greater than 50% in coordination of care (as documented) at patient's floor/unit and/or counseling patient:
[2019-10-07] MEDS: MIRTAZAPINE TAB 15 MG TAB PO SCH (23:46)
[2019-10-07] MEDS: HEPARIN SOD 5,000 UNIT/0.5 ML VIAL SQ SCH (23:46)
[2019-10-07] MEDS: NORTRIPTYLINE HCL 25 MG CAP PO SCH ×2 (23:47→23:48)
[2019-10-07] MEDS: DOCUSATE SODIUM/SENNA 50/8.6MG TAB PO SCH (23:55)
[2019-10-08] MEDS: SODIUM CHLORIDE 0.9% 1000ML 1,000 ML IV SCH ×3 (00:37→17:03)
[2019-10-08] MEDS: NITROGLYCERIN 2% OINTMENT 30GM TUBE EXT SCH ×4 (00:37→17:10)
[2019-10-08] MEDS: INSULIN ASPART 100 UNITS/ML 3 ML PEN SC SCH ×4 (00:44→17:03)
[2019-10-08] MEDS: HEPARIN SOD 5,000 UNIT/0.5 ML VIAL SQ SCH ×2 (05:42→16:26)
[2019-10-08] MEDS: NORTRIPTYLINE HCL 25 MG CAP PO SCH ×3 (08:42→19:27)
[2019-10-08] MEDS ORDERED: INSULIN GLARGINE SOLOSTAR 100 UNITS/ML 3 ML PEN SQ SCH ×2 (09:00)
[2019-10-08] MEDS ORDERED: METOPROLOL TARTRATE 25 MG TAB PO SCH (09:00)
[2019-10-08] MEDS ORDERED: ASPIRIN 81 MG ECTAB PO SCH (09:00)
[2019-10-08] MEDS ORDERED: AMLODIPINE BESYLATE 5 MG TAB PO SCH (09:00)
[2019-10-08] MEDS ORDERED: PANTOprazole 40 MG TAB PO SCH (09:00)
[2019-10-08 09:28] LABS: Hematocrit (blood only) 43.2 % (42-52); Hemoglobin 14.5 g/dL (14.0-18.0); Mean Corpuscular Hemoglobin 28.5 pg (25-34); Mean Corpuscular Hgb Conc 33.6 g/dL (32-36); Mean Corpuscular Volume 84.9 fL (80-100); Mean Platelet Volume 10.6 fL (7.4-10.4); Platelet Count 189 K/uL (130-400); RDW Coefficient of Variation 12.8 % (11.5-14.5); RDW Standard Deviation 39.1 fL (36.4-46.3); Red Blood Count 5.09 M/uL (4.7-6.1); White Blood Count 10.96 K/uL (4.8-10.8)
[2019-10-08 09:39] LABS: Estimated Average Glucose 197 mg/dl; Hemoglobin A1C 8.5 % (4.5-5.6)
[2019-10-08 10:03] LABS: BUN Creatinine Ratio 9.5 (10-20); Calcium 8.6 mg/dl (8.5-10.1); Creatinine Clr Calc Pharmacy 54.4 ml/min; Est GFR (African American) 49.7; Est GFR (Non-African American) 42.9; Potassium 3.8 mmol/L (3.5-5.1)
--- NOTE | 2019-10-08 13:08 | Consultation Report ---
DATE OF CONSULTATION: 10/08/2019 REQUESTING: Davion Richey DO. LAMP DECORATOR: Lencho Luna DO, [facility]. REASON FOR CONSULTATION: Chest discomfort, known coronary artery disease. Dear Dr. Richey, Thank you for requesting cardiology consultation on Patric with regards to his chest discomfort. As you know, he is a 54-year-old man who describes a left-sided chest discomfort, which is actually reproducible radiating to his left arm of 10 hours duration. His troponins are negative. His EKG is normal with the exception of a prior inferior myocardial infarction. He had some minimal improvement with nitroglycerin. He also has epigastric and abdominal discomfort and was found to have significant constipation as well. He occasionally gets GERD-like symptoms. Given his diffuse peripheral arterial disease with [id number] amputation on the left and a metatarsal amputation on the right, he is basically in a wheelchair all the time, someone pushes him from one place to the next in the custodial. If he has to get up in the bed, he can do that on his own without any anginal symptoms. He denies any shortness of breath given his limited functional capacity. He denies any lightheadedness, dizziness, presyncope or syncope. Denies any palpitations, fluttering, or feeling his heart racing. He has no lower extremity edema. He notes his appetite has been so-so. PAST MEDICAL HISTORY: 1. Coronary artery disease, status post angioplasty and stenting in 2015 at [facility] to an unknown vessel. 2. Bipolar disorder. 3. Depression. 4. Diabetes. 5. GERD. 6. Hypertension. 7. Chronic kidney disease with creatinine this admission of 1.9. SOCIAL HISTORY: He is incarcerated. He denies any alcohol use. ALLERGIES: No known drug allergies. OUTPATIENT MEDICATIONS: Reviewed in detail. PHYSICAL EXAMINATION: GENERAL: He is awake, alert, oriented x3. He is in no acute distress. He looks older than his stated age. VITAL SIGNS: His heart rate is 80, blood pressure 153/81, respirations 18, sat 94%. HEENT: 2+ carotid upstrokes, no evidence of carotid bruit. Jugular venous pressure did not appear elevated. Sclerae anicteric. His hearing is normal. LUNGS: Clear to auscultation bilaterally. No rales, rhonchi or wheezing. HEART: Regular rate and rhythm. No appreciable murmurs, rubs or gallops. ABDOMEN: Soft, nontender, nondistended. Positive bowel sounds. EXTREMITIES: He has a BKA on the left. He has got a TMA on the right. He has no lower extremity edema. PSYCHIATRIC: He appeared anxious. ELECTROCARDIOGRAM: Sinus tachycardia, inferior PR, age indeterminate, no acute ST-T changes. LABORATORY STUDIES: Troponins are negative x3. Hemoglobin 14.5, platelet count of 189. Sodium 140, potassium 3.8, BUN 17, creatinine 1.76. IMPRESSION: Chest discomfort, which is reproducible over the left side of his chest consistent with costochondritis. Palpating on his chest wall reproduces his pain completely. It is reassuring that his troponins are negative. His EKG does not show any acute changes. I do not believe he needs additional cardiac testing. Given his limited functional capacity and the fact that he is in a wheelchair all the time and does not push himself, I would aggressively treat his coronary disease and vascular disease with medical therapy. It is unclear why he is not on high intensity statin therapy. It is not mentioned as an intolerance, but if he can be, he should be on 80 mg of Lipitor or 40 mg of Crestor. Once his renal function is stabilized, ideally, he should be on some PEDRITO or ARB even if he has an increase in his creatinine as long as he is not hyperkalemic and as long as his creatinine does not rise by 30% in order to reduce his risk of cardiovascular events. In addition, we need to aggressively lower his blood pressure under 130 systolic. From my standpoint, he can be discharged back to the custodial and they can follow him buttermaker continuous churn.
[2019-10-08] MEDS ORDERED: LACTATED RINGER'S 1,000 ML IV ONE (13:28)
[2019-10-08 15:51] LABS: Calcium 8.4 mg/dl (8.5-10.1); Creatinine Clr Calc Pharmacy 59.5 ml/min; Est GFR (African American) 55.4; Est GFR (Non-African American) 47.8
[2019-10-08 16:38] LABS: Appearance Urine Clear (Clear); Bacteria Urine Automated Negative (Negative); Bilirubin Urine Negative (Negative); Blood Urine Negative (Negative); Color Urine Yellow; Epithelial Cell Urine Auto 0-5 /lpf (0-5); Glucose Urine UA 3+ (Negative); Ketones Urine Negative (Negative); Leukocyte Esterase Urine Negative (Negative); Nitrite Urine Negative (Negative); Protein Urine 1+ (Negative); RBC Urine Automated 0-4 /hpf (0-4); Specific Gravity Urine 1.037 (1.000-1.030); Urobilinogen Urine Negative (Negative); pH Urine 6.5 (4.5-7.5)
[2019-10-08] MEDS ORDERED: Nursing to Pharmacy Communication ONE (17:45)
[2019-10-08] MEDS: MIRTAZAPINE TAB 15 MG TAB PO SCH (19:27)
[2019-10-08] MEDS: DOCUSATE SODIUM/SENNA 50/8.6MG TAB PO SCH (19:27)
--- NOTE | 2019-10-16 20:31 | Discharge Summary ---
Date of Service October 08, 2019 Principal Diagnosis chest pain Discharge Exam General- adult male, NAD Head- atraumatic Eyes- PERRL, EOMI, anicteric ENT- oropharynx clear Neck- supple, no JVD, no adenopathy, no thyromegaly; carotids +2/2, no bruits appreciated Lungs- CTA b/l no R/R/W Heart- regular rhythm; no murmur, no gallop, no rub appreciated Abdomen- normal bowel sounds, soft, nontender. Extremities- no pretibial edema, no calf tenderness on right. Left BKA Neuro- alert, oriented x 3; PERRL, EOMI; CN's II-XII grossly intact, non-focal. Skin- warm & dry Discharge Data Allergies Allergy/AdvReac Type Severity Reaction Status Date / Time No Known Allergies Allergy Unverified 10/07/19 19:16 Consultations 10/07/19 19:03 ED Decision to Admit Stat 10/07/19 22:18 Consult Cardiology Routine Ordered Studies 10/07/19 17:36 CT abd pelvis IV con only Stat CT angio chest PE protocol Stat Hospital Course (1) Chest pain: Patient was admitted with chest pain and was evaluated by cardiology. Cardio input below: Chest discomfort, which is reproducible over the left side of his chest consistent with costochondritis. Palpating on his chest wall reproduces his pain completely. It is reassuring that his troponins are negative. His EKG does not show any acute changes. I do not believe he needs additional cardiac testing. Given his limited functional capacity and the fact that he is in a wheelchair all the time and does not push himself, I would aggressively treat his coronary disease and vascular disease with medical therapy. It is unclear why he is not on high intensity statin therapy. It is not mentioned as an intolerance, but if he can be, he should be on 80 mg of Lipitor or 40 mg of Crestor. Once his renal function is stabilized, ideally, he should be on some PEDRITO or ARB even if he has an increase in his creatinine as long as he is not hyperkalemic and as long as his creatinine does not rise by 30% in order to reduce his risk of cardiovascular events. (2) CAD (coronary artery disease): (3) Stented coronary artery: (4) HTN (hypertension): Continue amlodipine and metoprolol (5) Depression: Continue mirtazapine and nortriptylline (6) Type II diabetes mellitus: Continue Lantus Sliding scale coverage HGBA1C (7) CKD (chronic kidney disease) stage 3, GFR 30-59 ml/min: I give IVF overnight in that he had dye load from CTA chest. (8) GERD (gastroesophageal reflux disease): Continue pantroprazole. (9) Below-knee amputation of left lower extremity: Total Time Total Time Spent Total Time Spent (In Minutes): 33 Total Time Includes: Examination of the Patient, Discharge Planning and Medication Reconciliation Discharge Plan Discharge Items [facility] Disposition[facility] Reason For Visit: CHEST PAIN Discharge Diagnosis: chest pain Activity: Resume your previous activity Non-emergency contact: Primary Care Provider Call non-emergency contact if: you have any medication questions Follow-up/Referrals: Rafael SANCHEZ [Primary Care Provider] - Diet: Regular Addtl Attending Provider Instructions: You have been hospitalized for an acute medical problem which was chest pain. During your stay at [facility], it was determined that your chest pain was not cardiac related. Please make sure you see your Primary Care Provider as part of your follow up plan. Try to limit your use of ibuprofen as your kidney numbers are not normal. You will also need to improve your diabetes numbers as your a1c is at 8.5 If you continue on this path, you will likely end up on dialysis. Also recommend being on an pedrito inhibitor. Will recommend followup for Urology within 1-2 weeks to assess for urinary retention Pending Studies at Discharge: No Stand-Alone Forms: Call Back Authorization, My [facility] Skilled Items Patient informed of condition?: No DNR: No Discharge Level of Care: Other Communicable Disease: No Discharge Prognosis: Stable Lines: None Urinary Catheter: No Medications and DC Order Prescriptions: New ibuprofen 600 mg tablet 600 mg PO Q8H PRN (Reason: chest pain) Qty: 20 RF: 0 lidocaine 5 % cream 1 appln TOP BID PRN (Reason: pain) Qty: 30 RF: 0 lisinopril 2.5 mg tablet 2.5 mg PO DAILY Qty: 30 RF: 0 Continued Lantus U-100 Insulin 100 unit/mL Solution 26 unit SUBCUT DAILY RF: 0 aspirin [Aspir-81] 81 mg Tablet,Delayed Release (Dr/Ec) 81 mg PO DAILY RF: 0 amlodipine 10 mg Tablet 10 mg PO DAILY RF: 0 nortriptyline 75 mg Capsule 75 mg PO HS RF: 0 pantoprazole 40 mg Tablet,Delayed Release (Dr/Ec) 40 mg PO DAILY RF: 0 Humulin R Regular U-100 Insuln 100 unit/mL Solution 1 sliding scale dose SUBCUT TID RF: 0 nitroglycerin [Nitrostat] 0.4 mg Tablet, Sublingual 0.4 mg sublingual UD PRN (Reason: Chest Pain) RF: 0 nortriptyline 50 mg Capsule 50 mg PO BID RF: 0 metoprolol tartrate 25 mg Tablet 25 mg PO DAILY RF: 0 Alvesco 160 mcg/actuation Hfa Aerosol Inhaler 1 puff INHALATION BID RF: 0 levalbuterol tartrate [Xopenex HFA] 45 mcg/actuation Hfa Aerosol Inhaler 2 inh INHALATION QID PRN (Reason: Shortness Of Breath Or Wheezing) RF: 0 mirtazapine 15 mg Tablet 15 mg PO HS RF: 0 Admission Data Admit Date/Time: 10/07/19 19:59 Attending Provider: Jeison Ortiz Admit Provider: Davion Richey Primary Care Provider: Rafael SANCHEZ Other Providers: Davion Richey ; Lencho Luna Other Interventions: Discharge Summary Assessment (RN) Last Done: 10/08/19 21:57 DC Date/Time DO NOT enter until pt leaves facility: 10/08/19 21:15
== END 2019-10-08 21:15 ==
LOC: 2S 16:44 → ED 16:44 → SUATTDRO 19:59 → 2S 20:24